=== PATIENT | female | born 1960 | race Asian ===

== ENCOUNTER → 2017-09-10 | Outpatient (CLI) | payer BC | LOC: FIMAGING 15:29 | PROVIDERS: ATTEND Physician Assistant | DX: Z12.31 Encounter for screening mammogram for malignant neoplasm of breast (principal) | CPT/HCPCS: G0202 ==

== ENCOUNTER → 2018-10-15 | Outpatient (CLI) | payer BC | LOC: FIMAGING 09:36 | PROVIDERS: ATTEND Physician Assistant | DX: Z12.31 Encounter for screening mammogram for malignant neoplasm of breast (principal); M85.89 Other specified disorders of bone density and structure, multiple sites ==